=== PATIENT | male | born 1965 | race Caucasian/White ===

== ENCOUNTER → 2023-03-19 09:29 | Outpatient (CLI) | payer OTHER, SELFPAY ==
[2023-03-19 11:07] LABS: INR 3.1 (0.9-1.3); Prothrombin Time 35.6 SECONDS (10.1-12.7)
== END ==
PROVIDERS: Referring Provider Family Medicine; Visit Provider Family Medicine
DX: I82.461 Acute embolism and thrombosis of right calf muscular vein (principal)
CPT/HCPCS: 36415; 85610